=== PATIENT | female | born 1935 | race Asian ===

== ENCOUNTER → 2018-04-11 10:36 | Outpatient (CLI) | payer MEDICARE, OTHER, SELFPAY ==
--- NOTE | 2018-04-11 | DI.ECHO.S_ITS ---
[facility] +---------+ : : [address] : : : : [id number] : : : : Phone: [phone] Echocardiogram Report + + :Name: JUSTUS YORK Study Date: 04/11/2018 Height: 62 in : :[facility] Weight: 149 lb : : Gender: Female BSA: 1.7 m2 : :: 1935 Age: 82 yrs BP: 154/80 mmHg: :Reason For Study: Atrial fibrillation, Cardiomypoathy : :Ordering Physician: Flaca : :Asheriwgalo Performed By: Shante Rutledge : + + Interpretation Summary The left ventricle is normal in size. The ejection fraction is estimated to be 50-55%. The right ventricle is normal in size and function. There is a pacemaker lead in the right ventricle. The left atrium is severely dilated. There is moderate mitral regurgitation. There is mild tricuspid regurgitation. The right ventricular systolic pressure is estimated at 20 mmHg assuming a right atrial pressure of 3 mm Hg. The ascending aorta is mildly enlarged. Procedure: A two-dimensional transthoracic echocardiogram with color flow and Doppler was performed. There is no prior echocardiogram noted for this patient. The study quality was technically adequate. The patient has a paced rhythm. Left Ventricle: The left ventricle is normal in size. There is mild concentric left ventricular hypertrophy. There is no ventricular septal defect visualized. The ejection fraction is estimated to be 50-55%. Septal motion is consistent with conduction abnormality. Diastolic function could not be accurately assessed due to paced rhythm. Pulmonary vein Doppler revealed systolic blunting suggestive of increased left atrial pressure. Right Ventricle: There is a pacemaker lead in the right ventricle. The right ventricle is normal in size and function. The right ventricle appears to be hypertrophied. Atria: The left atrium is severely dilated. Right atrial size is normal. There is no Doppler evidence for an interatrial shunt. Mitral Valve: The mitral valve leaflets are slightly calcified. There is moderate mitral regurgitation. Aortic Valve: The aortic valve is trileaflet. The aortic valve opens well. There is no aortic valve stenosis. There is trace aortic regurgitation. Tricuspid Valve: The tricuspid valve is normal. There is mild tricuspid regurgitation. The right ventricular systolic pressure is estimated at 20 mmHg assuming a right atrial pressure of 3 mm Hg. Pulmonic Valve: The pulmonic valve leaflets are thin and pliable; valve motion is normal. There is trace pulmonic regurgitation. Great Vessels: The aortic root is normal size. The ascending aorta is mildly enlarged. The aortic arch is normal in size. The IVC is of normal diameter and collapses greater than 50% with a sniff. This suggests a low right atrial pressure of 3 mm Hg. Pericardium/ Pleura There is no pericardial effusion. There is an anterior echo-free space consistent with a fat pad. MMode/2D Measurements & Calculations LVIDd: 5.2 cm LVOT diam: 2.2 cm LVIDs: 4.2 cm Ao root diam: 3.3 cm FS: 19.1 % Aortic Jxn: 2.4 cm EPSS: 1.1 cm asc Aorta Diam: 3.5 cm IVSd: 1.3 cm Ao Arch Diam (Prox Trans): 2.5 cm LVPWd: 1.1 cm LV donis. diameter/BSA (cm/m^2): 3.1 LV sys. diameter/BSA (cm/m^2): 2.5 LA A2 area: 31.9 cm2 RA long axis: 5.0 cm LA A4 area: 28.2 cm2 RA area: 15.8 cm2 LA length (vol): 5.9 cm RA vol: 42.3 ml LA vol: 128.6 ml RA : 25.1 ml/m2 LA vol index: 76.2 ml/m2 IVC diam: 1.5 cm RVD1 (basal): 3.3 cm RVD2 (mid): 1.9 cm Doppler Measurements & Calculations Ao V2 max: 103.2 cm/sec LVOT Max Von: 64.2 cm/sec Ao V2 mean: 73.2 cm/sec LV V1 max P.7 mmHg Ao max P.3 mmHg LV V1 VTI: 10.2 cm Ao mean P.4 mmHg JAY(I,D): 1.7 cm2 Ao V2 VTI: 21.1 cm JAY(V,D): 2.3 cm2 sev ratio: 0.48 JAY indexed to BSA (cm^2/m^2): 1.0 Med Peak E' Von: 5.7 cm/sec TR max von: 203.2 cm/sec Lat Peak E' Von: 8.4 cm/sec TR max P.5 mmHg MVA(VTI): 3.1 cm2 PA V2 max: 61.8 cm/sec MR ERO: 0.13 cm2 PA V2 mean: 46.4 cm/sec PA mean P.97 mmHg PA Accel Time: 0.14 sec MV V2 mean: 50.7 cm/sec MR flow rate: 69.1 cm3/sec MV mean P.2 mmHg MR PISA radius: 0.50 cm MV V2 VTI: 12.1 cm Reading Physician:THEO
== END ==
PROVIDERS: PCP Family Medicine; Visit Provider Internal Medicine Cardiovascular Disease
DX: I08.1 Rheumatic disorders of both mitral and tricuspid valves (principal); I48.2 Chronic atrial fibrillation; I42.9 Cardiomyopathy, unspecified; Z95.0 Presence of cardiac pacemaker
CPT/HCPCS: 93306

== ENCOUNTER 2019-03-06 18:34 | Emergency (ER) | payer MEDICARE, OTHER, SELFPAY ==
--- NOTE | 2019-03-06 19:12 | DI.RAD.S_ITS ---
PROCEDURE: XR CHEST 2V INDICATIONS: persistent cough TECHNIQUE: 2 views of the chest were acquired. COMPARISON: None. FINDINGS: Surgical changes and devices: Left-sided cardiac pacer device is in place. Lungs and pleura: Mild hyperaeration. Flattening of the hemidiaphragms. Mild blunting of the left costophrenic angle possibly related to small pleural effusion versus pleural thickening/scarring. Minimal streaky bibasilar opacities favored to represent atelectasis. No focal consolidation. Minimal interstitial prominence possibly related to chronic process versus early edema. No pneumothorax. Mediastinum: cardiomediastinal contours demonstrate enlargement of the cardiac silhouette. Bones and chest wall: No suspicious bony abnormalities. Soft tissues appear unremarkable. IMPRESSION: Mild cardiomegaly with diffuse interstitial prominence and small left pleural effusion. Findings may represent early pulmonary edema. Inflammatory/infectious process not excluded versus chronic interstitial disease. Minimal streaky bibasilar opacities favored to represent atelectasis. No focal consolidation. Dictated by: Cliff Magaña M.D. on 03/06/2019 at 19:29 Approved by: Cliff Magaña M.D. on 03/06/2019 at 19:32
[2019-03-06 19:32] VITALS: BP 179/75; PULSE 72; RESP 20; TEMP 36.6; O2SAT 92; BMI 25.2
[2019-03-06 21:18] LABS: Add Manual Diff / Slide Review NO; Basophils Absolute Auto 0 /uL (0-100); Basophils Percent Auto 0.2 % (0-2); Eosinophils Absolute Auto 500 /uL (0-450); Eosinophils Percent Auto 4.1 % (2-4); Hemoglobin 11.9 g/dL (12.0-16.0); Lymphocytes Absolute Auto 1900 /uL (1100-4500); Lymphocytes Percent Auto 16.5 % (25-40); Mean Corpuscular HGB Conc 32.1 % (30-36); Mean Corpuscular Hemoglobin 31.8 PG (26-34); Mean Corpuscular Volume 99.1 fL (80-100); Monocytes Absolute Auto 600 /uL (0-900); Monocytes Percent Auto 5.2 % (3-14); Neutrophils Absolute Auto 8700 /uL (1500-7000); Platelet Count 164 X10^3/uL (150-400); Red Blood Cell Count 3.74 X10^6/uL (4.0-5.2); Red Cell Distribution Width 14.7 % (11.6-14.8); White Blood Cell Count 11.8 X10^3/uL (4.5-11.0)
[2019-03-06 21:30] VITALS: BP 157/67; PULSE 76; RESP 20; O2SAT 95
[2019-03-06 21:34] LABS: BUN Creatinine Ratio 15.5 (6-22); Blood Urea Nitrogen 48 mg/dL (7-17); Calcium 9.7 mg/dL (8.4-10.2); Carbon Dioxide 20 mmol/L (22-32); Chloride 109 mmol/L (98-107); Estimated Glomerular Filt Rate 14.4 mL/min (>60); Glucose 115 mg/dL (80-110); HEMOLYSIS 16 (0-50); Potassium 4.6 mmol/L (3.4-5.1); Sodium 139 mmol/L (137-145)
[2019-03-06 21:42] LABS: B Type Natriuretic Peptide 405 (<100)
--- NOTE | 2019-03-06 21:42 | ED.SOB ---
HPI - SOB/Dyspnea General Chief Complaint: Shortness of Breath/Dyspnea Stated Complaint: CAN'T STOP COUGHING Time Seen by Provider: 03/06/19 19:12 Source: patient and family Mode of arrival: ambulatory Limitations: no limitations History of Present Illness 83-year-old female former smoker with history of COPD presents with her in the chief complaint of difficulty coughing for the past week. She has felt short of breath and had expiratory wheeze despite the use of her bronchodilators. She coughs and produces white sputum. She denies fever, chills, nausea or vomiting. She denies any abdominal pain MD Complaint: shortness of breath and cough Onset (ago): day(s) Severity: moderate Consistency/Duration: constant Relieving factors: nothing Exacerbating factors: exertion Known history of: COPD Associated symptoms: cough and wheezing Treatment prior to arrival: none Related Data Previous Rx's Medication Instructions Recorded benzonatate [Tessalon Perles] 100 mg PO TID PRN #14 cap 03/06/19 doxycycline hyclate 100 mg PO BID #20 tab 03/06/19 prednisone 20 mg PO DAILY #5 tab 03/06/19 Review of Systems Constitutional Denies chills, Denies fever(s), Denies lethargy and Denies weakness Eyes Denies change in vision, Denies eye discharge, Denies irritation and Denies loss of vision ENT Ears, Nose, Mouth, and Throat: Denies change in voice, Denies neck pain and Denies sore throat Cardiovascular Denies chest pain, Denies irregular heart rhythm, Denies lightheadedness, Denies palpitations, Reports dyspnea, Reports dyspnea on exertion and Denies orthopnea Respiratory Reports cough, Reports dyspnea, Reports dyspnea on exertion and Reports wheezing Gastrointestinal Gastrointestinal: Denies abdominal pain, Denies change in bowel habits, Denies diarrhea, Denies nausea and Denies vomiting Genitourinary Denies hematuria, Denies flank pain, Denies urinary incontinence and Denies urinary urgency Musculoskeletal Denies neck pain Integumentary/Breasts Denies pruritus, Denies erythema, Denies rash and Denies wounds Neurologic Denies confusion, Denies loss of vision and Denies weakness Psychiatric Denies anxiety, Denies confusion, Denies depression, Denies homicidal ideation and Denies suicidal ideation Endocrine Denies palpitations Hematologic/Lymphatic Denies easy bruising Allergic/Immunologic Reports wheezing Exam Narrative Exam Narrative: GENERAL: [83] year old patient appears stated age. Well-nourished, well-developed patient, in mild distress. HEAD: Atraumatic. Normocephalic. EYES: Pupils equal round and reactive. Extraocular motions intact. No scleral icterus. No injection or drainage. ENT: Nose without bleeding, purulent drainage. Throat without erythema, tonsillar hypertrophy or exudate. Airway patent. NECK: Trachea midline. Non tender CARDIOVASCULAR: Regular rate and rhythm without murmurs, gallops, or rubs. RESPIRATORY: Decreased breath sounds bilaterally with a prolonged expiratory phase and widespread wheezes GASTROINTESTINAL: Abdomen soft, non-tender, nondistended. EXTREMITIES: No edema or joint tenderness. BACK: Nontender without deformity or crepitance. No flank tenderness. NEURO: AOx3. SKIN: No rash or erythema of visible areas Initial Vital Signs Initial Vital Signs: Vital Signs Temperature 97.8 F 03/06/19 19:32 Pulse Rate 72 03/06/19 19:32 Respiratory Rate 20 03/06/19 19:32 Blood Pressure 179/75 H 03/06/19 19:32 Pulse Oximetry 92 03/06/19 19:32 Course Orders Ordered: Discontinued Medications Albuterol/Ipratropium (Duoneb) 3 ml INH NOW ONE Stop: 03/06/19 22:06 Last Admin: 03/06/19 22:24 Dose: 3 ml Methylprednisolone (Solu-Medrol 125 Mg Vial) 125 mg IV NOW ONE Stop: 03/06/19 22:16 Last Admin: 03/06/19 22:36 Dose: 125 mg Reevaluation(s) Reevaluation #1: Patient has tremendous improvement in symptoms after the above-stated therapies Vital Signs - 8 hr 03/06/19 22:25 03/06/19 22:30 03/06/19 23:23 Temperature 98.2 F Pulse Rate 75 76 Respiratory Rate 17 20 Blood Pressure 157/65 H Blood Pressure [Left Arm] 137/74 Pulse Oximetry 94 94 93 MDM - SOB/Dyspnea Lab Data Result diagrams: 03/06/19 21:05 03/06/19 21:05 Lab Results 03/06/19 03/06/19 03/06/19 Range/Units 21:05 21:05 21:05 WBC 11.8 H (4.5-11.0) X10^3/uL RBC 3.74 L (4.0-5.2) X10^6/uL Hgb 11.9 L (12.0-16.0) g/dL Hct 37.0 (36-46) % MCV 99.1 (80-100) fL MCH 31.8 (26-34) PG MCHC 32.1 (30-36) % RDW 14.7 (11.6-14.8) % Plt Count 164 (150-400) X10^3/uL Neut % (Auto) 74.0 (50-75) % Lymph % (Auto) 16.5 L (25-40) % [place] % (Auto) 5.2 (3-14) % Eos % (Auto) 4.1 H (2-4) % Baso % (Auto) 0.2 (0-2) % Neut # (Auto) 8700 H (1864-9300) /uL Lymph # (Auto) 1900 (1443-5664) /uL [place] # (Auto) 600 (0-900) /uL Eos # (Auto) 500 H (0-450) /uL Baso # (Auto) 0 (0-100) /uL Sodium 139 (137-145) mmol/L Potassium 4.6 (3.4-5.1) mmol/L Chloride 109 H (98-107) mmol/L Carbon Dioxide 20 L (22-32) mmol/L BUN 48 H (7-17) mg/dL Creatinine 3.10 H (0.52-1.04) mg/dL Estimated GFR 14.4 L (>60) mL/min BUN/Creatinine Ratio 15.5 (6-22) Glucose 115 H (80-110) mg/dL Calcium 9.7 (8.4-10.2) mg/dL Troponin I < 0.012 (0.01-0.034) ng/mL B-Natriuretic Peptide 405 H (<100) Procalcitonin (<0.5) ng/mL 03/06/19 Range/Units 21:05 WBC (4.5-11.0) X10^3/uL RBC (4.0-5.2) X10^6/uL Hgb (12.0-16.0) g/dL Hct (36-46) % MCV (80-100) fL MCH (26-34) PG MCHC (30-36) % RDW (11.6-14.8) % Plt Count (150-400) X10^3/uL Neut % (Auto) (50-75) % Lymph % (Auto) (25-40) % [place] % (Auto) (3-14) % Eos % (Auto) (2-4) % Baso % (Auto) (0-2) % Neut # (Auto) (5030-5477) /uL Lymph # (Auto) (5356-0427) /uL [place] # (Auto) (0-900) /uL Eos # (Auto) (0-450) /uL Baso # (Auto) (0-100) /uL Sodium (137-145) mmol/L Potassium (3.4-5.1) mmol/L Chloride (98-107) mmol/L Carbon Dioxide (22-32) mmol/L BUN (7-17) mg/dL Creatinine (0.52-1.04) mg/dL Estimated GFR (>60) mL/min BUN/Creatinine Ratio (6-22) Glucose (80-110) mg/dL Calcium (8.4-10.2) mg/dL Troponin I (0.01-0.034) ng/mL B-Natriuretic Peptide (<100) Procalcitonin < 0.05 (<0.5) ng/mL Imaging Data Chest x-ray: Radiologist's impression: Sheree Rosales 83 F 1935 [place] [address] XRay Report Signed Patient: Sheree Rosales [facility]#: [id number] : 1935cct:[id number] Age/Sex: 83 / FDate of Service: 03/06/19 Loc: ED Accession Number: [id number] Procedure: XR chest 2V Ordering Provider: Saud Ku D.O. PROCEDURE: XR CHEST 2V INDICATIONS: persistent cough TECHNIQUE: 2 views of the chest were acquired. COMPARISON: None. FINDINGS: Surgical changes and devices: Left-sided cardiac pacer device is in place. Lungs and pleura: Mild hyperaeration. Flattening of the hemidiaphragms. Mild blunting of the left costophrenic angle possibly related to small pleural effusion versus pleural thickening/scarring. Minimal streaky bibasilar opacities favored to represent atelectasis. No focal consolidation. Minimal interstitial prominence possibly related to chronic process versus early edema. No pneumothorax. Mediastinum: cardiomediastinal contours demonstrate enlargement of the cardiac silhouette. Bones and chest wall: No suspicious bony abnormalities. Soft tissues appear unremarkable. IMPRESSION: Mild cardiomegaly with diffuse interstitial prominence and small left pleural effusion. Findings may represent early pulmonary edema. Inflammatory/infectious process not excluded versus chronic interstitial disease. Minimal streaky bibasilar opacities favored to represent atelectasis. No focal consolidation. Dictated by: Cliff Magaña M.D. on 03/06/2019 at 19:29 Approved by: Cliff Magaña M.D. on 03/06/2019 at 19:32 [facility] Narrative Medical decision making narrative: Multiple etiologies for patient's symptoms considered including: [Exacerbation of COPD versus CHF versus pneumonia versus other] Patient's symptoms improved or duration of stay with above-stated therapies. Findings and discharge diagnosis discussed with patient/family followed by verbalization of understanding Return precautions discussed with patient/family whom verbalize understanding. Discharge Plan Departure Patient Disposition: Home Clinical Impression: Acute exacerbation of chronic obstructive airways disease, Atypical pneumonia, Pulmonary edema Discharge Date/Time: 03/06/19 23:23 Interventions: ED Discharge Assessment Last Done: 03/06/19 23:23 Instructions: Chronic Obstructive Pulmonary Disease, DI for Cough -- Adult Activity Restrictions/Additional Instructions: *You have been diagnosed with [acute exacerbation of COPD, atypical pneumonia] *What to do: *Take medications as directed *Follow up with your primary care provider in 2-3 days, call for an appointment. Let them know you were seen in the Emergency Department and that we ask that you be seen in follow up *Return to ER if you should have any new, worsening or concerning symptoms Prescriptions: New prednisone 20 mg tablet 20 mg PO DAILY Qty: 5 RF: 0 benzonatate [Tessalon Perles] 100 mg capsule 100 mg PO TID PRN (Reason: cough) Qty: 14 RF: 0 doxycycline hyclate 100 mg tablet 100 mg PO BID Qty: 20 RF: 0 Referrals: Davie Christensen MD [Primary Care Provider] -
[2019-03-06 21:45] LABS: Troponin I < 0.012 ng/mL (0.01-0.034)
[2019-03-06 21:49] LABS: Procalcitonin < 0.05 ng/mL (<0.5)
[2019-03-06] MEDS: ALBUTEROL/IPRATROPIUM 3 ML AMPUL INH (22:24)
[2019-03-06 22:25] VITALS: O2SAT 94
[2019-03-06 22:30] VITALS: BP 137/74; PULSE 75; RESP 17; O2SAT 94
[2019-03-06] MEDS: methylPREDNISolone 125 MG/2 ML VIAL IV (22:36)
[2019-03-06 23:23] VITALS: BP 157/65; PULSE 76; RESP 20; TEMP 36.8; O2SAT 93
--- NOTE | 2019-03-07 06:20 | ED_ITS ---
HPI - SOB/Dyspnea General Chief Complaint: Shortness of Breath/Dyspnea Stated Complaint: CAN'T STOP COUGHING Time Seen by Provider: 03/06/19 19:12 Source: patient and family Mode of arrival: ambulatory Limitations: no limitations History of Present Illness 83-year-old female former smoker with history of COPD presents with her in the chief complaint of difficulty coughing for the past week. She has felt short of breath and had expiratory wheeze despite the use of her bronchodilators. She coughs and produces white sputum. She denies fever, chills, nausea or vomiting. She denies any abdominal pain MD Complaint: shortness of breath and cough Onset (ago): day(s) Severity: moderate Consistency/Duration: constant Relieving factors: nothing Exacerbating factors: exertion Known history of: COPD Associated symptoms: cough and wheezing Treatment prior to arrival: none Related Data Previous Rx's Medication Instructions Recorded benzonatate [Tessalon Perles] 100 mg PO TID PRN #14 cap 03/06/19 doxycycline hyclate 100 mg PO BID #20 tab 03/06/19 prednisone 20 mg PO DAILY #5 tab 03/06/19 Review of Systems Constitutional Denies chills, Denies fever(s), Denies lethargy and Denies weakness Eyes Denies change in vision, Denies eye discharge, Denies irritation and Denies loss of vision ENT Ears, Nose, Mouth, and Throat: Denies change in voice, Denies neck pain and Denies sore throat Cardiovascular Denies chest pain, Denies irregular heart rhythm, Denies lightheadedness, Denies palpitations, Reports dyspnea, Reports dyspnea on exertion and Denies orthopnea Respiratory Reports cough, Reports dyspnea, Reports dyspnea on exertion and Reports wheezing Gastrointestinal Gastrointestinal: Denies abdominal pain, Denies change in bowel habits, Denies diarrhea, Denies nausea and Denies vomiting Genitourinary Denies hematuria, Denies flank pain, Denies urinary incontinence and Denies urinary urgency Musculoskeletal Denies neck pain Integumentary/Breasts Denies pruritus, Denies erythema, Denies rash and Denies wounds Neurologic Denies confusion, Denies loss of vision and Denies weakness Psychiatric Denies anxiety, Denies confusion, Denies depression, Denies homicidal ideation and Denies suicidal ideation Endocrine Denies palpitations Hematologic/Lymphatic Denies easy bruising Allergic/Immunologic Reports wheezing Exam Narrative Exam Narrative: GENERAL: [83] year old patient appears stated age. Well- nourished, well-developed patient, in mild distress. HEAD: Atraumatic. Normocephalic. EYES: Pupils equal round and reactive. Extraocular motions intact. No scleral icterus. No injection or drainage. ENT: Nose without bleeding, purulent drainage. Throat without erythema, tonsillar hypertrophy or exudate. Airway patent. NECK: Trachea midline. Non tender CARDIOVASCULAR: Regular rate and rhythm without murmurs, gallops, or rubs. RESPIRATORY: Decreased breath sounds bilaterally with a prolonged expiratory phase and widespread wheezes GASTROINTESTINAL: Abdomen soft, non-tender, nondistended. EXTREMITIES: No edema or joint tenderness. BACK: Nontender without deformity or crepitance. No flank tenderness. NEURO: AOx3. SKIN: No rash or erythema of visible areas Initial Vital Signs Initial Vital Signs: Vital Signs Temperature 97.8 F 03/06/19 19:32 Pulse Rate 72 03/06/19 19:32 Respiratory Rate 20 03/06/19 19:32 Blood Pressure 179/75 H 03/06/19 19:32 Pulse Oximetry 92 03/06/19 19:32 Course Orders Ordered: Discontinued Medications Albuterol/Ipratropium (Duoneb) 3 ml INH NOW ONE Stop: 03/06/19 22:06 Last Admin: 03/06/19 22:24 Dose: 3 ml Methylprednisolone (Solu-Medrol 125 Mg Vial) 125 mg IV NOW ONE Stop: 03/06/19 22:16 Last Admin: 03/06/19 22:36 Dose: 125 mg Reevaluation(s) Reevaluation #1: Patient has tremendous improvement in symptoms after the above- stated therapies Vital Signs - 8 hr 03/06/19 22:25 03/06/19 22:30 03/06/19 23:23 Temperature 98.2 F Pulse Rate 75 76 Respiratory Rate 17 20 Blood Pressure 157/65 H Blood Pressure [Left Arm] 137/74 Pulse Oximetry 94 94 93 MDM - SOB/Dyspnea Lab Data Result diagrams: 03/06/19 21:05 03/06/19 21:05 Lab Results 03/06/19 03/06/19 03/06/19 Range/Units 21:05 21:05 21:05 WBC 11.8 H (4.5-11.0) X10^3/uL RBC 3.74 L (4.0-5.2) X10^6/uL Hgb 11.9 L (12.0-16.0) g/dL Hct 37.0 (36-46) % MCV 99.1 (80-100) fL MCH 31.8 (26-34) PG MCHC 32.1 (30-36) % RDW 14.7 (11.6-14.8) % Plt Count 164 (150-400) X10^3/uL Neut % (Auto) 74.0 (50-75) % Lymph % (Auto) 16.5 L (25-40) % [place] % (Auto) 5.2 (3-14) % Eos % (Auto) 4.1 H (2-4) % Baso % (Auto) 0.2 (0-2) % Neut # (Auto) 8700 H (3528-7124) /uL Lymph # (Auto) 1900 (8077-1210) /uL [place] # (Auto) 600 (0-900) /uL Eos # (Auto) 500 H (0-450) /uL Baso # (Auto) 0 (0-100) /uL Sodium 139 (137-145) mmol/L Potassium 4.6 (3.4-5.1) mmol/L Chloride 109 H (98-107) mmol/L Carbon Dioxide 20 L (22-32) mmol/L BUN 48 H (7-17) mg/dL Creatinine 3.10 H (0.52-1.04) mg/dL Estimated GFR 14.4 L (>60) mL/min BUN/Creatinine Ratio 15.5 (6-22) Glucose 115 H (80-110) mg/dL Calcium 9.7 (8.4-10.2) mg/dL Troponin I < 0.012 (0.01-0.034) ng/mL B-Natriuretic Peptide 405 H (<100) Procalcitonin (<0.5) ng/mL 03/06/19 Range/Units 21:05 WBC (4.5-11.0) X10^3/uL RBC (4.0-5.2) X10^6/uL Hgb (12.0-16.0) g/dL Hct (36-46) % MCV (80-100) fL MCH (26-34) PG MCHC (30-36) % RDW (11.6-14.8) % Plt Count (150-400) X10^3/uL Neut % (Auto) (50-75) % Lymph % (Auto) (25-40) % [place] % (Auto) (3-14) % Eos % (Auto) (2-4) % Baso % (Auto) (0-2) % Neut # (Auto) (6084-8154) /uL Lymph # (Auto) (3883-8196) /uL [place] # (Auto) (0-900) /uL Eos # (Auto) (0-450) /uL Baso # (Auto) (0-100) /uL Sodium (137-145) mmol/L Potassium (3.4-5.1) mmol/L Chloride (98-107) mmol/L Carbon Dioxide (22-32) mmol/L BUN (7-17) mg/dL Creatinine (0.52-1.04) mg/dL Estimated GFR (>60) mL/min BUN/Creatinine Ratio (6-22) Glucose (80-110) mg/dL Calcium (8.4-10.2) mg/dL Troponin I (0.01-0.034) ng/mL B-Natriuretic Peptide (<100) Procalcitonin < 0.05 (<0.5) ng/mL Imaging Data Chest x-ray: Radiologist's impression: Sheree Rosales 83 F 1935 [place] [address] XRay Report Signed Patient: Sheree Rosales [facility]#: [id number] : 1935cct:[id number] Age/Sex: 83 / FDate of Service: 03/06/19 Loc: ED Accession Number: [id number] Procedure: XR chest 2V Ordering Provider: Saud Ku D.O. PROCEDURE: XR CHEST 2V INDICATIONS: persistent cough TECHNIQUE: 2 views of the chest were acquired. COMPARISON: None. FINDINGS: Surgical changes and devices: Left-sided cardiac pacer device is in place. Lungs and pleura: Mild hyperaeration. Flattening of the hemidiaphragms. Mild blunting of the left costophrenic angle possibly related to small pleural effusion versus pleural thickening/scarring. Minimal streaky bibasilar opacities favored to represent atelectasis. No focal consolidation. Minimal interstitial prominence possibly related to chronic process versus early edema. No pneumothorax. Mediastinum: cardiomediastinal contours demonstrate enlargement of the cardiac silhouette. Bones and chest wall: No suspicious bony abnormalities. Soft tissues appear unremarkable. IMPRESSION: Mild cardiomegaly with diffuse interstitial prominence and small left pleural effusion. Findings may represent early pulmonary edema. Inflammatory/infectious process not excluded versus chronic interstitial disease. Minimal streaky bibasilar opacities favored to represent atelectasis. No focal consolidation. Dictated by: Cliff Magaña M.D. on 03/06/2019 at 19:29 Approved by: Cliff Magaña M.D. on 03/06/2019 at 19:32 [facility] Narrative Medical decision making narrative: Multiple etiologies for patient's symptoms considered including: [Exacerbation of COPD versus CHF versus pneumonia versus other] Patient's symptoms improved or duration of stay with above-stated therapies. Findings and discharge diagnosis discussed with patient/family followed by verbalization of understanding Return precautions discussed with patient/family whom verbalize understanding. Discharge Plan Departure Patient Disposition: Home Clinical Impression: Acute exacerbation of chronic obstructive airways disease, Atypical pneumonia, Pulmonary edema Discharge Date/Time: 03/06/19 23:23 Interventions: ED Discharge Assessment Last Done: 03/06/19 23:23 Instructions: Chronic Obstructive Pulmonary Disease, DI for Cough -- Adult Activity Restrictions/Additional Instructions: *You have been diagnosed with [acute exacerbation of COPD, atypical pneumonia] *What to do: *Take medications as directed *Follow up with your primary care provider in 2-3 days, call for an appointment. Let them know you were seen in the Emergency Department and that we ask that you be seen in follow up *Return to ER if you should have any new, worsening or concerning symptoms Prescriptions: New prednisone 20 mg tablet 20 mg PO DAILY Qty: 5 RF: 0 benzonatate [Tessalon Perles] 100 mg capsule 100 mg PO TID PRN (Reason: cough) Qty: 14 RF: 0 doxycycline hyclate 100 mg tablet 100 mg PO BID Qty: 20 RF: 0 Referrals: Davie Christensen MD [Primary Care Provider] -
[2019-03-07 17:39] LABS: Acinetobacter baumannii Not Detected (Not Detect); Candida albicans Not Detected (Not Detect); Candida glabrata Not Detected (Not Detect); Candida krusei Not Detected (Not Detect); Candida parapsilosis Not Detected (Not Detect); Candida tropicalis Not Detected (Not Detect); E. coli Not Detected (Not Detect); Enterobacter cloacae complex Not Detected (Not Detect); Enterobacteriaceae species Not Detected (Not Detect); Haemophilus influenzae Not Detected (Not Detect); KPC (carbapenem-resist gene) Not Detected (Not Detect); Listeria monocytogenes Not Detected (Not Detect); Methicillin-resistant gene Not Detected (Not Detect); Neisseria meningitidis Not Detected (Not Detect); Proteus species Not Detected (Not Detect); Pseudomonas aeruginosa Not Detected (Not Detect); Serratia marcescens Not Detected (Not Detect); Staphylococcus species Not Detected (Not Detect); Streptococcus agalactiae (Gr B Not Detected (Not Detect); Streptococcus pneumonia Not Detected (Not Detect); Streptococcus pyogenes (Gr A) Not Detected (Not Detect); Streptococcus species Not Detected (Not Detect); Vancomycin-rest genes A/B Not Detected (Not Detect)
[2019-03-07 20:00] LABS: Enterococcus species Detected (Not Detect)
--- NOTE | 2019-03-07 20:00 | PC.NURSE ---
[facility] IN LAB NOTIFIED GRAM POSITIVE ENTEROCOCCI,DR. WYNN NOTIFIED.
--- NOTE | 2019-03-07 20:15 | PC.NURSE ---
Spoke with her and her at 201203/07/19.
== END 2019-03-06 23:23 | disposition home or self-care (01) ==
PROVIDERS: Emergency Provider Emergency Medicine; PCP Family Medicine
DX: J44.1 Chronic obstructive pulmonary disease with (acute) exacerbation (principal); J18.9 Pneumonia, unspecified organism; J81.1 Chronic pulmonary edema
CPT/HCPCS: 36415; 36591; 71046; 80048; 83880; 84145; 84484; 85025; 87040; 87150; 87185; 87186; 87205; 94640; 96374; 99282; 99284; J2930